=== PATIENT | female | born 1960 | race Two or more races ===

== ENCOUNTER 2025-01-04 19:35 | Inpatient (IN) | payer OTHER, MEDICAID ==
[~2025-01-04] VITALS: Ht 170.2 cm; Wt 120.5 kg
[~2025-01-04 19:35] MED LIST: ATOR40TA52 PO; CLOP75TA70 PO; FAMO-12 PO; FURO40TA4 PO; GABA-339 PO; LISI20TA56 PO; MELO15TA29 PO; MET25T PO; NIAC1TAB30 PO; PANT40T PO
--- NOTE | 2025-01-04 20:00 | ED.PDOC ---
HPI Comments 64-year-old female who came to ER for chest pains. Patient does have history of hypertension, CHF, and PA. states she has been having intermittent episodes of sharp, stabbing sternal chest pains, radiating across her chest since this morning, relieved temporarily with intake of nitro. States she took nitro at total of 4 times today. Persistence of chest pains with worsening left leg pain/swelling prompted patient to come to the ER Chief Complaint: Chest Pain Time Seen by MD: 19:59 Reviewed Notes: Nurses Notes Allergies: Coded Allergies: Codeine (Verified Allergy, Unknown, 01/04/25) Penicillins (Verified Allergy, Unknown, 01/04/25) Tetanus Antitoxin (Verified Allergy, Unknown, 01/04/25) Tetracycline (Verified Allergy, Unknown, 01/04/25) Information Source: Patient Mode of Arrival: Ambulatory Severity: Moderate Timing: Hours Duration: Intermittent Location: Chest (R), Chest (L) Quality: Sharp, Stabbing Onset: With Light Exertion Cardiac Risk Factors: HTN, Other (Mi) History of: Similar pain in past, PA Past Medical History PAST MEDICAL HISTORY: CHF, HTN, PA Surgical History: Denies all surgeries CUTTER HOT KNIFE History: Denies all CUTTER HOT KNIFE Hx Family History Family History: Reviewed,noncontributory to illness Social History Smoker: Non-Smoker Alcohol: Denies ETOH Use Drugs: Denies Drug Use Lives In: Home Constitutional: denies: chills, diaphoresis, fatigue, fever, malaise, sweats, weakness, others EENTM: denies: blurred vision, double vision, ear bleeding, ear discharge, ear drainage, ear pain, ear ringing, eye pain, eye redness, hearing loss, mouth pain, mouth swelling, nasal discharge, nose bleeding, nose congestion, nose pain, photophobia, tearing, throat pain, throat swelling, voice changes, others Respiratory: denies: cough, hemoptysis, orthopnea, SOB at rest, shortness of breath, SOB with excertion, stridor, wheezing, others Cardiovascular: reports: chest pain, edema; denies: dizzy spells, diaphoresis, Dyspnea on exertion, irregular heart beat, left arm pain, lightheadedness, palpitations, PND, syncope, others Gastrointestinal: denies: abdomen distended, abdominal pain, blood streaked bowels, constipated, diarrhea, dysphagia, difficulty swallowing, hematemesis, melena, nausea, poor appetite, poor fluid intake, rectal bleeding, rectal pain, vomiting, others Genitourinary: denies: abnormal vagina bleeding, burning, dyspareunia, dysuria, flank pain, frequency, hematuria, incontinence, pain, , vagina discharge, urgency, others Neurological: denies: dizziness, fainting, headache, left sided numbness, left sided weakness, numbness, paresthesia, pre-existing deficit, right sided numbness, right sided weakness, seizure, speech problems, tingling, tremors, weakness, others Musculoskeletal: denies: back pain, gout, joint pain, joint swelling, muscle p ain, muscle stiffness, neck pain, others Integumetry: denies: bruises, change in color, change in hair/nails, dryness, laceration, lesions, lumps, rash, wounds, others Allergic/Immunocompromised: denies: Difficulty Healing, Frequent Infections, Hives, Itching, others Hematologic/Lymphatic: denies: anemia, blood clots, easy bleeding, easy bruising, swollen glands, others Endocrine: denies: excessive hunger, excessive sweating, excessive thirst, excessive urination, flushing, intolerance to cold, intolerance to heat, unexplained weight gain, unexplained weight loss, others Psychiatric: denies: anxiety, bipolar disorder, depression, hopeless, panic disorder, schizophrenia, sleepless, suicidal, others Physical Exam General Appearance: No Apparent Distress, Normal HEENT: Normal ENT Inspection, Pharynx Normal, TMs Normal Neck: Full Range of Motion, Non-Tender, Normal, Normal Inspection Respiratory: Chest Non-Tender, Lungs Clear, No Accessory Muscle Use, No Respiratory Distress, Normal Breath Sounds Cardiovascular: No Edema, No JVD, No Murmur, No Gallop, Normal Peripheral Pulses, Regular Rate/Rhythm Breast Exam: Deferred Gastrointestinal: No Organomegaly, Non Tender, No Pulsatile Mass, Normal Bowel Sounds, Soft Genitalia: Deferred Pelvic: Deferred Rectal: Deferred Extremities: No calf tenderness, Normal capillary refill, Normal inspection, Normal range of motion, Non-tender, No pedal edema Musculoskeletal : Apperance: Normal Neurologic: Alert, [employer] professor II-XII nml as Tested, No Motor Deficits, Normal Affect, Normal Mood, No Sensory Deficits Cerebellar Function: Normal Reflexes: Normal Skin: Dry, Normal Color, Warm Lymphatic: No Adenopathy EKG EKG : Pulse Rate (adult): 90 Cardiac Rhythm: NSR Hypertrophy: RVH Was a procedure done? Was a procedure done?: No CP Differential Dx Differential Diagnosis: Angina, Anxiety / Panic Attack Differential Diagnosis: CHF Differential Diagnosis: Angina, Chest Wall Pain, Costochondritis, Esophageal reflux/spasm, Gastritis, Myocardial Infarction, Pneumonia X-Ray, Labs, Meds, VS Vital Signs Date Time Temp Pulse Resp B/P (MAP) Pulse Ox O2 Delivery O2 Flow Rate FiO2 01/04/25 20:37 84 17 125/81 01/04/25 20:00 90 01/04/25 19:38 90 01/04/25 19:37 98.2 87 20 111/62 94 98.2 Lab Test 01/04/25 21:40 01/04/25 20:45 Range/Units Troponin I High Sensitivity 94 *H 54 *H </=34 ng/L White Blood Count 10.0 4.4-10.8 10^3/uL Red Blood Count 4.74 4.0-5.20 10^6/uL Hemoglobin 14.0 12.2-16.2 g/dL Hematocrit 41.2 36.0-46.0 % Mean Corpuscular Volume 86.8 80.0-100.0 fL Mean Corpuscular Hemoglobin 29.5 28.0-32.0 pg Mean Corpuscular Hemoglobin Concent 34.0 32.0-36.0 g/dL Red Cell Distribution Width 15.1 H 11.8-14.3 % Platelet Count 200 140-450 10^3/uL Mean Platelet Volume 8.6 6.9-10.8 fL Neutrophils (%) (Auto) 73.1 37.0-80.0 % Lymphocytes (%) (Auto) 16.5 10.0-50.0 % Monocytes (%) (Auto) 7.9 0.0-12.0 % Eosinophils (%) (Auto) 1.5 0.0-7.0 % Basophils (%) (Auto) 1.0 0.0-2.0 % Neutrophils # (Auto) 7.3 1.6-8.6 10 ^3/uL Lymphocytes # (Auto) 1.6 0.4-5.4 10 ^3/uL Monocytes # (Auto) 0.8 0-1.3 10 ^3/uL Eosinophils # (Auto) 0.1 0-0.8 10 ^3/uL Basophils # (Auto) 0.1 0-0.2 10 ^3/uL Nucleated Red Blood Cells 0.1 % Prothrombin Time 10.7 9.3-11.8 sec Prothrombin Time INR 1.01 0.9-1.15 Activated Partial Thromboplast Time 25.7 24.5-34.5 SEC Sodium Level 139 136-145 mmol/L Potassium Level 3.6 3.5-5.1 mmol/L Chloride Level 105 98-107 mmol/L Carbon Dioxide Level 22 20-31 mmol/L Anion Gap 12 5-15 Blood Urea Nitrogen 14 9-23 mg/dL Creatinine 1.28 H 0.550-1.02 mg/dL Glomerular Filtration Rate Calc 47 >90 mL/min BUN/Creatinine Ratio 10.9 10.0-20.0 Serum Glucose 148 H 74-106 mg/dL Calcium Level 9.0 8.7-10.4 mg/dL Magnesium Level 2.1 1.6-2.6 mg/dL Total Bilirubin 0.8 0.2-1.0 mg/dL Aspartate Amino Transferase (AST) 37 13-40 U/L Alanine Aminotransferase (ALT) 38 7-40 U/L Alkaline Phosphatase 116 46-116 U/L B-Type Natriuretic Peptide 421.57 0-100 pg/mL Total Protein 7.3 5.7-8.2 g/dL Albumin 4.0 3.2-4.8 g/dL Current Medications Medications (Trade) Dose Ordered Sig/Todd Route Start Time Stop Time Status Last Admin Morphine Sulfate 4 mg ONCE ONCE IV 01/04/25 20:00 01/04/25 20:01 DC 01/04/25 20:37 Ondansetron HCl (Zofran) 4 mg ONCE ONCE IV 01/04/25 20:00 01/04/25 20:01 DC 01/04/25 20:38 Aspirin 162 mg ONCE ONCE PO 01/04/25 20:00 01/04/25 20:01 DC 01/04/25 20:38 Left lower extremity venous duplex Clinical History: pain left leg / swelling Comparison: None Technique: Duplex Doppler evaluation of the deep venous system of the left lower extremity from the common femoral vein to the popliteal vein including color Doppler and spectral/pulsed waveform analysis was performed. Findings: The common femoral vein demonstrates appropriate compressibility and waveform variability. There is compressibility/patency of the great saphenous vein at the proximal thigh. The femoral vein demonstrates appropriate compressibility and waveform variabi lity. The deep femoral vein demonstrates appropriate compressibility and waveform variability. The popliteal vein demonstrates appropriate compressibility and waveform variability. Impression: No evidence of left femoropopliteal venous thrombosis. T RADIOGRAPH REASON FOR EXAM: chest pain COMPARISON: None TECHNIQUE: One view of the chest is provided FINDINGS: The cardiomediastinal silhouette is enlarged. There is pulmonary venous congestion. There is mild pulmonary edema. There is small left pleural effusion. There is left basilar airspace disease. There is no pneumothorax. No acute osseous abnormality. IMPRESSION: Cardiomegaly. Mild pulmonary edema. Small left pleural effusion. Left basilar airspace disease, possibly atelectasis. Time of 1ST Reevaluation: 19:50 Reevaluation 1ST: Unchanged Patient Education/Counseling: Diagnosis, Treatment Family Education/Counseling: No Family Present SEPSIS Sepsis Screen Date sepsis recognized/suspect: Jan 04, 2025 Time Sepsis recognized/suspect: 1941 Recent Procedure: No On Antibiotic Therapy: No Respiratory Rate >20: No Heart Rate >90: No Temp<36 C (96.8 F) or >38.3 C: No SBP <90 or MAP <65 mmHG: No New Acute Mental Status Change: No Is the patient on CPAP, BIPAP,: No Physician Orders Electrocardigram (01/04/25 19:47) Chest Xray 1 View (01/04/25 19:47) Lt Lower Dvt (01/04/25 19:47) Troponin-I Hs (01/04/25 22:47) Vital Signs Date Time Temp Pulse Resp B/P (MAP) Pulse Ox O2 Delivery O2 Flow Rate FiO2 01/04/25 20:37 84 17 125/81 01/04/25 20:00 90 01/04/25 19:38 90 01/04/25 19:37 98.2 87 20 111/62 94 98.2 Laboratory Tests Test 01/04/25 20:45 White Blood Count 10.0 10^3/uL (4.4-10.8) Medications Medications Dose Ordered Sig/Todd Route Start Time Stop Time Status Last Admin Dose Admin Aspirin 162 mg ONCE ONCE PO 01/04/25 20:00 01/04/25 20:01 DC 01/04/25 20:38 Morphine Sulfate 4 mg ONCE ONCE IV 01/04/25 20:00 01/04/25 20:01 DC 01/04/25 20:37 Ondansetron HCl 4 mg ONCE ONCE IV 01/04/25 20:00 01/04/25 20:01 DC 01/04/25 20:38 Departure 1 Departure Time of Disposition: 22:30 Impression: Primary Impression: Acute coronary syndrome Additional Impression: Acute renal injury Disposition: ADMITTED INPATIENT Admit to: Tele Condition: Guarded Discharged With: Self Comments 64-year-old female with a history of coronary artery disease now complains of dull substernal chest pain. On her lab review her initial troponin is elevated at 54. The repeat troponin is more elevated 94. She appears to have acute renal injury with elevated creatinine of 1.28. Chest x-ray shows some mild pleural effusions. The patient was given aspirin and some IV fluids. Patient will need to be admitted for supportive care and further workup of acute coronary syndrome and acute renal injury Critical Care Note Critical Care Time?: Yes (35 min-critical care time only) Critical care comment: Chest pains Stability Stability form required: No Heart Score Heart Score: Heart Score Response (Comments) Value History Moderate Suspicious 1 EKG Repolarization Disturb 1 Age 45-64 1 Risk Factors >3 or Hx ASHD 2 Troponin Normal limit 0 Total 5 I personally scribed for EDITH EDDY MD ([email or web address]) on 01/04/25 at 20:00. Electronically submitted by Celio Valentine ([email or web address]). I personally scribed for EDITH EDDY MD ([email or web address]) on 01/04/25 at 21:10. Electronically submitted by Celio Valentine ([email or web address]). EDITH EDDY MD Jan 04, 2025 20:00
--- NOTE | 2025-01-04 20:24 | DVH ---
CHEST RADIOGRAPH REASON FOR EXAM: chest pain COMPARISON: None TECHNIQUE: One view of the chest is provided FINDINGS: The cardiomediastinal silhouette is enlarged. There is pulmonary venous congestion. There i s mild pulmonary edema. There is small left pleural effusion. There is left basilar airspace disease. There is no pneumothorax. No acute osseous abnormality. IMPRESSION: Cardiomegaly. Mild pulmonary edema. Small left pleural effusion. Left basilar airspace disease, poss ibly atelectasis.
--- NOTE | 2025-01-04 20:27 | DVH ---
Left lower extremity venous duplex Clinical History: pain left leg / swelling Comparison: None Technique: Duplex Doppler evaluation of the deep venous system of the left lower extremity from the common femor al vein to the popliteal vein including color Doppler and spectral/pulsed waveform analysis was perfo rmed. Findings: The common femoral vein demonstrates appropriate compressibility and waveform variability. There is compressibility/patency of the great saphenous vein at the proximal thigh. The femoral vein demonstrates appropriate compressibility and waveform variability. The deep femoral vein demonstrates appropriate compressibility and waveform variability. The popliteal vein demonstrates appropriate compressibility and waveform variability. Impression: No evidence of left femoropopliteal venous thrombosis.
[2025-01-04] MEDS: MORPHINE SULFATE 4 MG/ML SYR/VIAL IV ONE (20:37)
[2025-01-04] MEDS: ONDANSETRON HCL 4 MG/2 ML VIAL IV ONE (20:38)
[2025-01-04 21:11] LABS: Hematocrit 41.2 % (36.0-46.0); Hemoglobin 14.0 g/dL (12.2-16.2); Mean Corpuscular Hemoglobin 29.5 pg (28.0-32.0); Mean Corpuscular Volume 86.8 fL (80.0-100.0); Nucleated Red Blood Cells % 0.1 %
[2025-01-04 21:16] LABS: Alanine Aminotransferase 38 U/L (7-40); Albumin 4.0 g/dL (3.2-4.8); Anion Gap 12 (5-15); BUN/Creatinine Ratio 10.9 (10.0-20.0); Bilirubin, Total 0.8 mg/dL (0.2-1.0); Blood Urea Nitrogen 14 mg/dL (9-23); Calcium 9.0 mg/dL (8.7-10.4); Carbon Dioxide 22 mmol/L (20-31); Chloride 105 mmol/L (98-107); Magnesium 2.1 mg/dL (1.6-2.6); Potassium 3.6 mmol/L (3.5-5.1); Sodium 139 mmol/L (136-145); Total Protein 7.3 g/dL (5.7-8.2)
[2025-01-04 21:27] LABS: Alkaline Phosphatase 116 U/L (46-116); Glucose 148 mg/dL (74-106); INR 1.01 (0.9-1.15); Partial Thromboplastin Time 25.7 SEC (24.5-34.5); Prothrombin Time 10.7 sec (9.3-11.8)
[2025-01-04] MEDS: SODIUM CHLORIDE 0.9% 500 ML IV ONE (22:40)
[2025-01-04] MEDS ORDERED: METOCLOPRAMIDE HCL 5MG/ml INJ 2ml VIAL IV PRN (23:15)
[2025-01-04] MEDS ORDERED: NITROGLYCERIN 0.4 MG SL TAB SL PRN (23:15)
[2025-01-04] MEDS ORDERED: MORPHINE SULFATE INJ 2 MG/ml SYRG IV PRN (23:15)
[2025-01-04] MEDS ORDERED: ACETAMINOPHEN 325 MG TAB PO PRN (23:15)
[2025-01-04] MEDS ORDERED: DOCUSATE SOD 100 MG CAP PO PRN (23:15)
--- NOTE | 2025-01-04 23:21 | DVHHPRES ---
History of Present Illness Resident Creating Document: LEONCIO MOLINA History of Present Illness Jewels Farrell is a 64-year-old female patient who presents to the ED with chief complaint of multiple episodes of stabbing retrosternal chest pain which radiates towards left arm in Functional Class IV, intensity 8/10. First episode started on 01/04 2025 at 8:00 a.m. which was completely relieved by nitroglycerin after 30 minutes, next episode was at 1:00 p.m. which was relieved by nitro once again, however 3rd episode of 6:00 p.m. required two nitroglycerin pills was not relieved, prompting her visit to the ER. Patient says she has been having this intermittent pain since she was last hospitalized in May 2024, but was less intense and shorter episodes in variable functional class. Patient says this pain is different from when she had an HI in 2014. Associated symptoms include dyspnea in Functional Class III, bilateral leg swelling (left greater than right) and paroxysmal nocturnal dyspnea. She also reports recent mechanical fall with no loss of consciousness with left knee pain. Patient denies any other associated symptoms. Past medical history: Hypertension, dyslipidemia, morbid obesity, coronary artery disease with HI in 2013 which is not passable of revascularization with PCI and she refused CABG treated with optimal medical therapy, HFpEF (LVEF 55%), moderate circumferential pericardial effusion, provoked DVT in 2018 after mecha nical fall requiring thrombectomy and anticoagulation with warfarin for six months, asthma, probable COPD, peptic ulcer, cholelithiasis treated with pantoprazole per patient, questionable obstructive sleep apnea. Surgical history: Coronary angiography in 2013 and 2019 not passable of PCI, left knee surgery, thrombectomy. Family history: Mother and father had heart disease Social history: Lives in [facility] with family (next of kin ). Ex tobacco abuse (he is five pack-year history of smoking) quit approximately 10 years ago. Denies current tobacco, alcohol and other drug abuse. Allergies: Codeine, tetracycline, penicillin, tetanus Home medication: Aspirin, Plavix, atorvastatin, pantoprazole 05/2024 last echocardiogram: Moderate circumferential pericardial effusion, normal LV size and function (EF 55-60%), normal RV size and function, studies nondiagnostic to assess valvular disease. Patient seen and examined at bedside. Currently has no chest pain, she is on nasal cannula at 2 L/min (she normally does not require oxygen at home). Past Medical History Per HPI Past Surgical History Per HPI Family History Per HPI Past Social History Per HPI Review of Systems Review of Systems Per HPI Allergies: Coded Allergies: Codeine (Verified Allergy, Unknown, 01/04/25) Penicillins (Verified Allergy, Unknown, 01/04/25) Tetanus Antitoxin (Verified Allergy, Unknown, 01/04/25) Tetracycline (Verified Allergy, Unknown, 01/04/25) Exam Vital Signs Vital Signs Date Time Temp Pulse Resp B/P (MAP) Pulse Ox O2 Delivery O2 Flow Rate FiO2 01/04/25 20:37 84 17 125/81 01/04/25 19:37 98.2 94 98.2 Exam Patient lying in bed, in no acute distress General: Lucid, afebrile, mucosae are moist Cardiovascular: Decreased S1 and S2. No murmurs, gallops or rubs Respiratory: Regular ventilation mechanics. Bibasilar rales, rest of lung auscultation is clear. Requires cannula 2 L/min. Abdomen: Soft, nontender, no organomegaly, normal bowel sounds MSK/skin: Mobilizes 4 limbs. Skin is dry and warm. Bilateral infrapatellar pitting edema left greater than right. Neurological: Oriented in 3 spheres. No motor no sensitive deficits. Pupils are isocoric and reactive Labs/Xrays Labs Test 01/04/25 21:40 01/04/25 20:45 Range/Units Troponin I High Sensitivity 94 *H </=34 ng/L White Blood Count 10.0 4.4-10.8 10^3/uL Red Blood Count 4.74 4.0-5.20 10^6/uL Hemoglobin 14.0 12.2-16.2 g/dL Hematocrit 41.2 36.0-46.0 % Mean Corpuscular Volume 86.8 80.0-100.0 fL Mean Corpuscular Hemoglobin 29.5 28.0-32.0 pg Mean Corpuscular Hemoglobin Concent 34.0 32.0-36.0 g/dL Red Cell Distribution Width 15.1 H 11.8-14.3 % Platelet Count 200 140-450 10^3/uL Mean Platelet Volume 8.6 6.9-10.8 fL Neutrophils (%) (Auto) 73.1 37.0-80.0 % Lymphocytes (%) (Auto) 16.5 10.0-50.0 % Monocytes (%) (Auto) 7.9 0.0-12.0 % Eosinophils (%) (Auto) 1.5 0.0-7.0 % Basophils (%) (Auto) 1.0 0.0-2.0 % Neutrophils # (Auto) 7.3 1.6-8.6 10 ^3/uL Lymphocytes # (Auto) 1.6 0.4-5.4 10 ^3/uL Monocytes # (Auto) 0.8 0-1.3 10 ^3/uL Eosinophils # (Auto) 0.1 0-0.8 10 ^3/uL Basophils # (Auto) 0.1 0-0.2 10 ^3/uL Nucleated Red Blood Cells 0.1 % Prothrombin Time 10.7 9.3-11.8 sec Prothrombin Time INR 1.01 0.9-1.15 Activated Partial Thromboplast Time 25.7 24.5-34.5 SEC Sodium Level 139 136-145 mmol/L Potassium Level 3.6 3.5-5.1 mmol/L Chloride Level 105 98-107 mmol/L Carbon Dioxide Level 22 20-31 mmol/L Anion Gap 12 5-15 Blood Urea Nitrogen 14 9-23 mg/dL Creatinine 1.28 H 0.550-1.02 mg/dL Glomerular Filtration Rate Calc 47 >90 mL/min BUN/Creatinine Ratio 10.9 10.0-20.0 Serum Glucose 148 H 74-106 mg/dL Calcium Level 9.0 8.7-10.4 mg/dL Magnesium Level 2.1 1.6-2.6 mg/dL Total Bilirubin 0.8 0.2-1.0 mg/dL Aspartate Amino Transferase (AST) 37 13-40 U/L Alanine Aminotransferase (ALT) 38 7-40 U/L Alkaline Phosphatase 116 46-116 U/L B-Type Natriuretic Peptide 421.57 0-100 pg/mL Total Protein 7.3 5.7-8.2 g/dL Albumin 4.0 3.2-4.8 g/dL SEPSIS Sepsis Screen Date sepsis recognized/suspect: Jan 04, 2025 Time Sepsis recognized/suspect: 1941 Recent Procedure: No On Antibiotic Therapy: No Respiratory Rate >20: No Heart Rate >90: No Temp<36 C (96.8 F) or >38.3 C: No SBP <90 or MAP <65 mmHG: No New Acute Mental Status Change: No Is the patient on CPAP, BIPAP,: No Physician Orders Electrocardigram (01/04/25 19:47) Chest Xray 1 View (01/04/25 19:47) Lt Lower Dvt (01/04/25 19:47) Troponin-I Hs (01/04/25 22:47) Sodium Chloride 0.9% (01/04/25 22:30) Admit (01/04/25 23:12) Code Status (01/04/25 23:12) Vital Signs .PER UNIT PROTOCOL (01/04/25 23:12) Review Orders With Adm.Md (01/04/25 23:12) Npo (Nothing By Mouth) Diet (01/05/25 Breakfast) Metoclopramide Injection (Reglan Injecti (01/04/25 23:15) Docusate Sodium Capsule (Colace Capsule) (01/04/25 23:15) Acetaminophen Tablet (Tylenol Tablet) (01/04/25 23:15) Notify Md Of Changes From Base (01/04/25 23:12) Advance Directive (01/04/25 23:12) Echo 2d Mode Cardiac Dop (01/04/25 23:12) Patient Condition (01/04/25 23:12) Allergies (01/04/25 23:12) Morphine Sulfate Injection (01/04/25 23:15) Nitroglycerin Sublingual (Ntrostat Subli (01/04/25 23:15) Morphine Sulfate Injection (01/04/25 23:15) Oxygen By Nasal Cannula (01/04/25 23:12) Stat Ekg For Chest Pain (01/04/25 23:12) Notify Md Of Changes From Base (01/04/25 23:12) Plating Equipment Tender For 24 Hours (01/04/25 23:12) Emergency Dysrhythmia Protocol (01/04/25 23:12) Rhythm Strips Once Every Shift (01/04/25 23:12) Complete Blood Count (01/05/25 04:00) Basic Metabolic Panel (01/05/25 04:00) Vitamin D, 25-Hydroxy (01/04/25 23:12) Vitamin B12 (01/04/25 23:12) Thyroid Stimulating Hormone (01/04/25 23:12) Lipid Panel (01/04/25 23:12) Drug Screen (01/04/25 23:12) Hemoglobin A1c (01/04/25 23:12) Urinalysis (01/04/25 23:12) Aspirin Tablet (01/05/25 10:00) Atorvastatin (Lipitor) (01/05/25 22:00) Atorvastatin (Lipitor) (01/04/25 23:15) Furosemide Injection (Lasix Injection) (01/05/25 06:00) Enoxaparin Sodium (Lovenox) (01/05/25 10:00) Vital Signs Date Time Temp Pulse Resp B/P (MAP) Pulse Ox O2 Delivery O2 Flow Rate FiO2 01/04/25 20:37 84 17 125/81 01/04/25 20:00 90 01/04/25 19:38 90 01/04/25 19:37 98.2 87 20 111/62 94 98.2 Laboratory Tests Test 01/04/25 20:45 White Blood Count 10.0 10^3/uL (4.4-10.8) Medications Medications Dose Ordered Sig/Todd Route Start Time Stop Time Status Last Admin Dose Admin Aspirin 162 mg ONCE ONCE PO 01/04/25 20:00 01/04/25 20:01 DC 01/04/25 20:38 162 MG Aspirin 162 mg ONCE ONCE PO 01/04/25 22:30 01/04/25 22:31 DC 01/04/25 22:40 162 MG Morphine Sulfate 4 mg ONCE ONCE IV 01/04/25 20:00 01/04/25 20:01 DC 01/04/25 20:37 4 MG Ondansetron HCl 4 mg ONCE ONCE IV 01/04/25 20:00 01/04/25 20:01 DC 01/04/25 20:38 4 MG Sodium Chloride 500 ml @ 500 mls/hr Q1H ONCE IV 01/04/25 22:30 01/04/25 23:29 01/04/25 22:40 500 MLS/HR Assessment/Plan Assessment/Plan # NSTEMI rule out type 1 # Acute respiratory failure secondary to HFpEF # Acute on chronic diastolic congestive heart failure (HFpEF LVEF 55-60%) # Coronary artery disease with history of HI not revascularized # Ischemic cardiomyopathy - not revascularized # Rule out progression of pericardial effusion # History of moderate pericardial effusion Completed EKG which shows no ST-elevation, negative T waves in anterior leads and old infero-lateral infarct, troponin mildly elevated up trending, BNP elevated (421). Chest xRay shows cardiomegaly and mild pulmonary edema. Cardiology consulted. Ordered new echocardiogram to evaluate LVEF, wall motion abnormalities and per icardial effusion Hold IV diuretics until completing new echocardiogram due to history of moderate pericardial effusion. Rule out progression empiric cardial effusion before diminishing preload. Currently with oxygen therapy with nasal cannula 2 L/min Patient completed coronary angiography in 2013 and 2019, not passable for PCI per patient. She refused CABG previously, opted for optimal medical therapy. Continue ASA, clopidogrel and atorvastatin Patient does not present Baker's triad. No need for urgent pericardiocentesis. Pending new echocardiogram 05/2024 last echocardiogram: Moderate circumferential pericardial effusion, normal LV size and function (EF 55-60%), normal RV size and function, studies nondiagnostic to assess valvular disease. # ALLI hemodynamically mediated (VMN) Hold diuretics until echocardiogram is completed # Mechanical fall # Ruled out DVT # History of provoked DVT after mechanical fall - required Warfarin for 6 months Patient had recent mechanical fall with no loss of consciousness and injured her left knee. Ordered left knee x-ray Completed lower limb ultrasound which ruled out DVT # Asthma and probable COPD not exacerbated Currently on oxygen therapy with nasal cannula at 2 L/min # Prediabetes - Hemoglobin A1C 6% # Hypertension # Dyslipidemia # Morbid obesity Gave advice on healthy life style habits Continue Atorvastatin No anti-hypertensive medication at the time required. Evaluate pericardial ef fusion On mild insulin sliding scale # History of peptic ulcers # History of cholelithiasis Continue pantoprazole. Monitor # Questionable HENRI Complete sleep study as an outpatient Goals of care discussed with patient for over 18 minutes: Full code status Discussed plan with Dr. Griggs, patient and nurses: Patient admitted to telemetry, currently asymptomatic for angina, with mildly elevated troponin that is uptrending, anterior negative T waves on EKG. Cardiology consulted to evaluate coronary angiography. Ordered echocardiogram to evaluate previous moderate pericardial effusion. Plan discussed with: Patient, Son, Other (Nurses) My Orders Orders - LEONCIO MOLINA RESIDENT Procedure Category Date Status Time Admit ADMIT 01/04/25 Transmitted 23:12 Code Status CODE 01/04/25 Transmitted 23:12 Vital Signs DC 01/04/25 In Process 23:12 Review Orders With [facility] 01/04/25 In Process Adm. 23:12 Npo (Nothing By DIET 01/05/25 Transmitted Mouth) Diet Breakfast Metoclopramide [facility] 01/04/25 Logged Injection (Reglan 23:15 Docusate Sodium PHA 01/04/25 Logged Capsule (Colace 23:15 Acetaminophen Tablet [facility] 01/04/25 Logged (Tylenol Tablet) 23:15 Notify Of Changes [facility] 01/04/25 In Process From Base 23:12 Advance Directive [facility] 01/04/25 In Process 23:12 Echo 2d Mode Cardiac US 01/04/25 Logged DOP 23:12 Patient Condition ORDERS 01/04/25 Transmitted 23:12 Allergies [facility] 01/04/25 In Process 23:12 Morphine Sulfate [facility] 01/04/25 Logged Injection 23:15 Nitroglycerin [facility] 01/04/25 Logged Sublingual (Ntrostat 23:15 Morphine Sulfate [facility] 01/04/25 Logged Injection 23:15 Oxygen By Nasal RT 01/04/25 Transmitted Cannula 23:12 Stat Ekg For Chest [facility] 01/04/25 In Process Pain 23:12 Notify Of Changes [facility] 01/04/25 In Process From Base 23:12 Plating Equipment Tender For [facility] 01/04/25 In Process 24 Hours 23:12 Emergency Dysrhythmia [facility] 01/04/25 In Process Protocol 23:12 Rhythm Strips Once [facility] 01/04/25 In Process Every Shift 23:12 Complete Blood Count LAB 01/05/25 Verified 04:00 Basic Metabolic Panel LAB 01/05/25 Verified 04:00 Vitamin D, 25-Hydroxy LAB 01/04/25 In Process 23:12 Vitamin B12 LAB 01/04/25 In Process 23:12 Thyroid Stimulating LAB 01/04/25 In Process Hormone 23:12 Lipid Panel LAB 01/04/25 In Process 23:12 Drug Screen LAB 01/04/25 Logged 23:12 Hemoglobin A1c LAB 01/04/25 In Process 23:12 Urinalysis LAB 01/04/25 Logged 23:12 Aspirin Tablet [facility] 01/05/25 Logged 10:00 Atorvastatin (Lipitor) [facility] 01/05/25 Logged 22:00 Atorvastatin (Lipitor) [facility] 01/04/25 Logged 23:15 Furosemide Injection [facility] 01/05/25 Logged (Lasix Injection) 06:00 Enoxaparin Sodium [facility] 01/05/25 Logged (Lovenox) 10:00 Date of Service: Jan 04, 2025 Billing Provider: CAITLYN GRIGGS MD Common Visit Codes: [id number] INP/OBS CARE (HIGH) Secondary Visit Codes: [id number] CARE PLAN 30 MINUTES LEONCIO MOLINA RESIDENT Jan 04, 2025 23:21
[2025-01-04] MEDS: ENOXAPARIN SOD 100 MG/1 ML SYRINGE SC SCH (23:25)
[2025-01-04 23:36] LABS: Triglycerides 145 mg/dL (< 150)
[2025-01-05 00:05] LABS: Cholesterol 234 mg/dL (< 200); HDL Cholesterol 34 mg/dL (40-59)
[2025-01-05] MEDS: ATORVASTATIN 20 MG TAB PO ONE (00:55)
[2025-01-05 05:41] LABS: Hematocrit 40.9 % (36.0-46.0); Hemoglobin 14.1 g/dL (12.2-16.2); Mean Corpuscular Hemoglobin 30.0 pg (28.0-32.0); Mean Corpuscular Volume 87.2 fL (80.0-100.0); Nucleated Red Blood Cells % 0.0 %
[2025-01-05 05:53] LABS: Chloride 104 mmol/L (98-107); Potassium 3.7 mmol/L (3.5-5.1); Sodium 140 mmol/L (136-145)
[2025-01-05 05:54] LABS: Anion Gap 10 (5-15); Calcium 9.2 mg/dL (8.7-10.4); Carbon Dioxide 26 mmol/L (20-31)
[2025-01-05 05:59] LABS: BUN/Creatinine Ratio 9.8 (10.0-20.0); Blood Urea Nitrogen 12 mg/dL (9-23); Glucose 105 mg/dL (74-106)
[2025-01-05] MEDS ORDERED: FUROSEMIDE 20 MG/2 ML VIAL IV SCH (06:00)
[2025-01-05] MEDS ORDERED: DEXTROSE (50%) 50ML SYRG IV PRN (06:15)
[2025-01-05 07:35] LABS: COVID19 ANTIGEN SOFIA FIA NEGATIVE (NEGATIVE)
--- NOTE | 2025-01-05 07:56 | DVH ---
XY L KNEE 3V XRAY, INDICATION: Mechanical fall TECHNICAL DATA: Frontal , oblique and lateral views were obtained of the left knee. COMPARISON: None FINDINGS: No fracture is identified. Medial, lateral and patellofemoral compartment joint spaces are degenerati ve. Alignment is anatomic. Soft tissues are swollen. No joint effusion is demonstrated. IMPRESSION: No acute fracture or dislocation of the left knee.
[2025-01-05] MEDS: MORPHINE SULFATE INJ 2 MG/ml SYRG IV PRN (08:04)
[2025-01-05] MEDS: PANTOPRAZOLE 40 MG TAB PO SCH (08:04)
[2025-01-05] MEDS: InsuLIN REG 1unit/0.01ml Soln (100units/ml) SC SCH (08:05)
[2025-01-05] MEDS: ACCU-CHEK COMFORT CURVE STRIP VI SCH (08:13)
[2025-01-05] MEDS: CLOPIDOGREL BISULFATE 75 MG TAB PO SCH (10:09)
--- NOTE | 2025-01-05 12:21 | DVHINCON2 ---
Date Seen: Jan 05, 2025 Referring Physician [place] Reason for Consultation NSTEMI History of Present Illness 64-year-old female with PMH for HTN, CAD, previous smoker, left lower extremity DVT, CHF presents to the hospital with intermittent retrosternal sharp pain radiating up to left neck and down her left arm. Patient states started roughly yesterday and been having intermittent episodes ever since. Patient states she has relief with nitro. Upon evaluation in the ER patient did not have troponins trending 54, 94, 153. BNP 421. CXR showing cardiomegaly with mild pulmonary edema small left pleural effusion. Left lower extremity ultrasound negative for DVT. Patient does endorse that she has had angiograms in the past in 2013 and 2019 of which was told was not suitable candidate for PCI and was recommended at both times CABG. Patient states that she has had friends that have passed right after undergoing surgery and therefore did not want to proceed with any surgery. EKG reviewed and shows sinus rhythm at 90 beats per minute, inferolateral ST and T-wave abnormality, anterior T-wave inversion. Past Medical History Hypertension, dyslipidemia, morbid obesity, coronary artery disease with IN in DVT in 2018 asthma, probable COPD, peptic ulcer, cholelithiasis treated with pantoprazole per patient, questionable obstructive sleep apnea. Past Surgical History Surgical history: Coronary angiography in 2013 and 2019 not passable of PCI, refused CABG at that time. left knee surgery, DVT thrombectomy. Family History Denies pertinent family cardiac history Social History Denies alcohol or illicit drug use. Patient will was a previous smoker endorses quitting approximately 10 years prior. Allergies: Coded Allergies: Codeine (Verified Allergy, Unknown, 01/04/25) Penicillins (Verified Allergy, Unknown, 01/04/25) Tetanus Antitoxin (Verified Allergy, Unknown, 01/04/25) Tetracycline (Verified Allergy, Unknown, 01/04/25) Current Medications Current Medications Medications (Trade) Dose Ordered Sig/Todd Route PRN Reason Start Time Stop Time Status Last Admin Metoclopramide HCl (Reglan Injection) 10 mg Q4HP PRN IV NAUSEA / VOMITING 01/04/25 23:15 Docusate Sodium (Colace Capsule) 100 mg BIDPRN PRN PO FOR CONSTIPATION 01/04/25 23:15 Acetaminophen (Tylenol Tablet) 650 mg Q6HP PRN PO PAIN SCALE 1-3 OR TEMP>100.4 01/04/25 23:15 Morphine Sulfate 2 mg Q4HPRN PRN IV SEVERE PAIN (7-10 PAIN SCALE) 01/04/25 23:15 01/05/25 08:04 Nitroglycerin (Ntrostat Sublingual) 0.4 mg Q5MINP PRN SL FOR CHEST PAIN 01/04/25 23:15 Morphine Sulfate 2 mg Q30M PRN IV FOR CHEST PAIN 01/04/25 23:15 Aspirin 81 mg DAILY PO 01/05/25 10:00 01/05/25 10:09 Atorvastatin Calcium (Lipitor) 80 mg HS PO 01/05/25 22:00 Furosemide (Lasix Injection) 20 mg BIDD IV 01/05/25 06:00 Hold Enoxaparin Sodium (Lovenox) 150 mg Q12HR@1100,2300 SC 01/04/25 23:25 01/05/25 10:08 Clopidogrel Bisulfate (Plavix) 75 mg DAILY PO 01/05/25 10:00 01/05/25 10:09 Pantoprazole Sodium (Protonix Tablet) 40 mg DAILY@0600 PO 01/05/25 06:00 01/05/25 08:04 Diagnostic Test (Pha) (Accu-Chek Comfort Curve T) 1 strip ACHS 01/05/25 07:00 01/05/25 11:28 Insulin Human Regular (InsuLIN R) ACHS SC 01/05/25 07:00 Dextrose 50 ml UD PRN IV Blood Sugar LESS THAN 60 01/05/25 06:15 Review of Systems Constitutional: No: Fever, Chills, Sweats, Weakness, Malaise, Other Eyes: No: Pain, Vision change, Conjunctivae inflammation, Eyelid inflammation, Other, Redness ENT: No: Ear pain, Ear discharge, Nose pain, Nose discharge, Nose congestion, Mouth pain, Mouth swelling, Throat pain, Throat swelling, Other Respiratory: No: Cough, Dry, Shortness of breath, SOB with exertion, Wheezing, Hemoptysis, Pleuritic Pain, Sputum, Wheezing, Other Cardiovascular: ; No: Chest Pain Palpitations, Orthopnea, Paroxysmal Noc. Dyspnea, Edema, Lt Headedness, Other Gastrointestinal: No: Nausea, Vomiting, Abdominal Pain, Diarrhea, Constipation, Melena, Hematochezia, Other Genitourinary: No Dysuria, No Frequency, No Incontinence, No Hematuria, No Retention, No Other Musculoskeletal: neck pain; No: other, shoulder pain, arm pain, back pain, hand pain, leg pain, foot pain Skin: No: Rash, Lesions, Jaundice, Bruising, Other Neurological: Other (Dizziness, headache.); No: Weakness, Numbness, Incoordination, Change in speech, Confusion, Seizures Vital Signs Vital Signs Date Time Temp Pulse Resp B/P (MAP) Pulse Ox O2 Delivery O2 Flow Rate FiO2 01/05/25 08:34 80 15 102/60 01/05/25 07:50 Nasal Cannula* 2 28 01/05/25 06:21 92 01/05/25 00:57 97.4 97.4 Physical Exam General appearance: Patient is well-developed, well-nourished, in no acute distress. HEENT: Exam shows: Normocephalic, atraumatic, PERRLA, EOMI Neck: Supple, no bruits Chest: Equal chest excursion bilaterally. Breath sounds normal-no rales or wheezes. Heart: Rhythm: Regular rate; no murmur or gallop Abdomen: Exam shows: Soft, nontender, nondistended Musculoskeletal: No clubbing, no cyanosis, + lower extremity edema Dermatology: Skin warm, moist. Neurological: Exam shows: Alert and oriented x4, normal speech Available prior records, labs, EKG, rhythm strips reviewed and interpreted Labs/Diagnostic Data Labs Test 01/05/25 11:27 01/05/25 05:50 01/05/25 04:50 01/04/25 23:42 Range/Units POC Glucose 111 H 70-106 mg/dl Influenza Type A Antigen Negative Negative Influenza Type B Antigen Negative Negative SARS-CoV-2 Antigen (Rapid) Negative NEGATIVE White Blood Count 9.8 4.4-10.8 10^3/uL Red Blood Count 4.70 4.0-5.20 10^6/uL Hemoglobin 14.1 12.2-16.2 g/dL Hematocrit 40.9 36.0-46.0 % Mean Corpuscular Volume 87.2 80.0-100.0 fL Mean Corpuscular Hemoglobin 30.0 28.0-32.0 pg Mean Corpuscular Hemoglobin Concent 34.4 32.0-36.0 g/dL Red Cell Distribution Width 15.3 H 11.8-14.3 % Platelet Count 207 140-450 10^3/uL Mean Platelet Volume 8.6 6.9-10.8 fL Neutrophils (%) (Auto) 58.9 37.0-80.0 % Lymphocytes (%) (Auto) 31.0 10.0-50.0 % Monocytes (%) (Auto) 7.3 0.0-12.0 % Eosinophils (%) (Auto) 1.9 0.0-7.0 % Basophils (%) (Auto) 0.9 0.0-2.0 % Neutrophils # (Auto) 5.8 1.6-8.6 10 ^3/uL Lymphocytes # (Auto) 3.0 0.4-5.4 10 ^3/uL Monocytes # (Auto) 0.7 0-1.3 10 ^3/uL Eosinophils # (Auto) 0.2 0-0.8 10 ^3/uL Basophils # (Auto) 0.1 0-0.2 10 ^3/uL Nucleated Red Blood Cells 0.0 % Erythrocyte Sedimentation Rate 14 0-20 mm/hr Sodium Level 140 136-145 mmol/L Potassium Level 3.7 3.5-5.1 mmol/L Chloride Level 104 98-107 mmol/L Carbon Dioxide Level 26 20-31 mmol/L Anion Gap 10 5-15 Blood Urea Nitrogen 12 9-23 mg/dL Creatinine 1.22 H 0.550-1.02 mg/dL Glomerular Filtration Rate Calc 50 >90 mL/min BUN/Creatinine Ratio 9.8 L 10.0-20.0 Serum Glucose 105 74-106 mg/dL Calcium Level 9.2 8.7-10.4 mg/dL C-Reactive Protein High Sensitivity 0.98 <1.0 mg/dL Troponin I High Sensitivity 153 *H </=34 ng/L Test 01/04/25 20:45 Range/Units Prothrombin Time 10.7 9.3-11.8 sec Prothrombin Time INR 1.01 0.9-1.15 Activated Partial Thromboplast Time 25.7 24.5-34.5 SEC Hemoglobin A1c 6.0 H <5.7 % A1C Magnesium Level 2.1 1.6-2.6 mg/dL Total Bilirubin 0.8 0.2-1.0 mg/dL Aspartate Amino Transferase (AST) 37 13-40 U/L Alanine Aminotransferase (ALT) 38 7-40 U/L Alkaline Phosphatase 116 46-116 U/L B-Type Natriuretic Peptide 421.57 0-100 pg/mL Total Protein 7.3 5.7-8.2 g/dL Albumin 4.0 3.2-4.8 g/dL Triglycerides Level 145 < 150 mg/dL Cholesterol Level 234 H < 200 mg/dL LDL Cholesterol 193 H < 100 mg/dL HDL Cholesterol 34 L 40-59 mg/dL Thyroid Stimulating Hormone (TSH) 1.18 0.55-4.78 uIU/mL Assessment * NSTEMI - continue aspirin and Plavix and statin. EKG with ST and T-wave abnormalities. Prior infarcts with though interventions. Follow up echo. * Acute on chronic HFpEF - diuresed held in setting of ALLI. Follow up echo. * HLD - statin * CAD - endorse previous angiogram with significant CAD not possible for PCI. Continue on medical management. * ALLI - continue monitoring. * HX lower lower extremity DVT - ultrasound negative for DVT. * Acute hypoxic respiratory failure, CHF, underlying COPD? - per primary team. Case Discussed with Dr Valdez. Continue medical management with aspirin and statin and Plavix. Patient with previously known CAD and possible for PCI referred for CABG though refused in the past. Plan of care discussed in detail with patient continues to not want any type of surgical intervention or procedure at this time. Patient verbalizes understanding of risks and benefits as well as leading to myocardial . Adamant about not wanting any procedure/surgery. Continue medical management. Check echo. Critical care, time spent: 40 minutes This medical document was created using an electronic medical record system with voice recognition software and computerized dictation system. Although this document has been carefully reviewed, there might still be some phonetic and typographical errors. Occasional wrong-word or ``sound-alike substitutions may have occurred due to the inherent limitations of voice recognition software. These areas are purely typographical due to imperfections of the software programs and do not reflect any compromise in the patient's medical care. Please read the chart carefully and recognize, using context, where these substitutions have occurred. Thank you for allowing me to participate in the management of this patient. The treatment plan was discussed with and agreed upon by patient/family including requesting consultants and ordering of imaging/procedures. Plan discussed with: Patient NYHA Physical activity limitations: Class3(Marked) ordinary Date of Service: Jan 05, 2025 Billing Provider: THOMAS JIMENEZ Cardiology Common Codes: [id number] INP/OBS CARE (High), [id number] HOSP CARE(High THOMAS JIMENEZ Jan 05, 2025 12:21
--- NOTE | 2025-01-05 12:33 | DVHPN2 ---
Reviewed: Care Plan, H&P, Labs, Medications, Previous Orders, Radiology Changes from previous H/P or p: No Changes Objective Vitals Vital Signs Date Time Temp Pulse Resp B/P (MAP) Pulse Ox O2 Delivery O2 Flow Rate FiO2 01/05/25 08:34 80 15 102/60 01/05/25 07:50 Nasal Cannula* 2 28 01/05/25 06:21 92 01/05/25 00:57 97.4 97.4 Medications Current Medications Medications Dose Ordered Sig/Todd Route Start Time Stop Time Status Last Admin Dose Admin Metoclopramide HCl 10 mg Q4HP PRN IV 01/04/25 23:15 Docusate Sodium 100 mg BIDPRN PRN PO 01/04/25 23:15 Acetaminophen 650 mg Q6HP PRN PO 01/04/25 23:15 Morphine Sulfate 2 mg Q4HPRN PRN IV 01/04/25 23:15 01/05/25 08:04 2 MG Nitroglycerin 0.4 mg Q5MINP PRN SL 01/04/25 23:15 Morphine Sulfate 2 mg Q30M PRN IV 01/04/25 23:15 Aspirin 81 mg DAILY PO 01/05/25 10:00 01/05/25 10:09 81 MG Atorvastatin Calcium 80 mg HS PO 01/05/25 22:00 Furosemide 20 mg BIDD IV 01/05/25 06:00 Hold Enoxaparin Sodium 150 mg Q12HR@1100,2300 TN 01/04/25 23:25 01/05/25 10:08 150 MG Clopidogrel Bisulfate 75 mg DAILY PO 01/05/25 10:00 01/05/25 10:09 75 MG Pantoprazole Sodium 40 mg DAILY@0600 PO 01/05/25 06:00 01/05/25 08:04 40 MG Diagnostic Test (Pha) 1 strip ACHS 01/05/25 07:00 01/05/25 11:28 1 STRIP Insulin Human Regular ACHS SC 01/05/25 07:00 Dextrose 50 ml UD PRN IV 01/05/25 06:15 Laboratory Results Laboratory Tests 01/05/25 04:50 Chemistry Test 01/04/25 20:45 01/05/25 04:50 Albumin 4.0 g/dL (3.2-4.8) Calcium Level 9.0 mg/dL (8.7-10.4) 9.2 mg/dL (8.7-10.4) Magnesium Level 2.1 mg/dL (1.6-2.6) Total Protein 7.3 g/dL (5.7-8.2) Coagulation Test 01/04/25 20:45 Prothrombin Time 10.7 sec (9.3-11.8) Prothrombin Time INR 1.01 (0.9-1.15) Activated Partial Thromboplast Time 25.7 SEC (24.5-34.5) Lipid panel Test 01/04/25 20:45 Cholesterol Level 234 mg/dL (< 200) H HDL Cholesterol 34 mg/dL (40-59) L Triglycerides Level 145 mg/dL (< 150) Cardiac Markers Test 01/04/25 20:45 B-Type Natriuretic Peptide 421.57 pg/mL (0-100) LFT Test 01/04/25 20:45 Alanine Aminotransferase (ALT) 38 U/L (7-40) Alkaline Phosphatase 116 U/L (46-116) Aspartate Amino Transferase (AST) 37 U/L (13-40) Total Bilirubin 0.8 mg/dL (0.2-1.0) HgA1c, TSH Test 01/04/25 20:45 Hemoglobin A1c 6.0 % A1C (<5.7) H Thyroid Stimulating Hormone (TSH) 1.18 uIU/mL (0.55-4.78) Labs and/or images reviewed: Labs reviewed by me, Image(s) reviewed by me Assessment/Plan Assessment/Plan NSTEMI - continue aspirin and Plavix and statin. EKG with ST and T-wave abnormalities. Follow up echo. Acute on chronic HFpEF - diuresed held in setting of ALLI. Follow up echo. Hypercholesterolemia- statin CAD - endorse previous angiogram with significant CAD not possible for PCI. Continue on medical management. ALLI - continue monitoring. HX lower lower extremity DVT - ultrasound negative for DVT. Acute hypoxic respiratory failure, CHF Acute COPD exacerbation Spent 70 minutes Advanced care planning time 20 minutes Patient is full code Plan discussed with: Patient Date of Service: Jan 05, 2025 Billing Provider: KAVIN ADLER MD Common Visit Codes: [id number] CARE 30-74 MIN KAVIN ADLER MD Jan 05, 2025 12:33
[2025-01-05 14:29] LABS: Urine Protein, UAD Negative (Negative)
[2025-01-05 14:44] LABS: Amphetamine Screen, Urine Neg (NEGATIVE); Barbiturate Scree,Urine Neg (NEGATIVE); Benzodiazephine Screen, Urine Neg (NEGATIVE); Cannabinoid Screen, Urine Neg (NEGATIVE); Cocaine Screen, Urine Neg (NEGATIVE); Opiate Scree,Urine Pos (NEGATIVE); Phencyclidine Screen, Urine Neg (NEGATIVE)
[2025-01-05] MEDS: ATORVASTATIN 20 MG TAB PO SCH (21:45)
[2025-01-05 23:00] VITALS: BP 135/86; PULSE 71; RESP 20; TEMP 97.9; O2SAT 96
[2025-01-05 23:20] VITALS: PULSE 82; RESP 18; O2SAT 98
[2025-01-05 23:30] VITALS: BP 135/86; PULSE 71; RESP 19; TEMP 98.1; O2SAT 96
[2025-01-06] VITALS (8 sets, daily range): BP systolic 91–128; BP diastolic 49–68; PULSE 58–118; RESP 15–22; TEMP 97.5–98.9; O2SAT 93–100
--- NOTE | 2025-01-06 10:45 | DVHPN2 ---
Reviewed: Care Plan, H&P, Labs, Medications, Previous Orders, Radiology Changes from previous H/P or p: No Changes Objective Vitals Vital Signs Date Time Temp Pulse Resp B/P (MAP) Pulse Ox O2 Delivery O2 Flow Rate FiO2 01/06/25 09:00 98.4 69 15 100/58 (72) 100 98.4 01/05/25 23:20 Nasal Cannula* 6 44 Intake/Output Intake and Output 01/06/25 07:00 Intake Total 0 ml Balance 0 ml Intake Oral 0 ml # Voids 3 Medications Current Medications Medications Dose Ordered Sig/Todd Route Start Time Stop Time Status Last Admin Dose Admin Metoclopramide HCl 10 mg Q4HP PRN IV 01/04/25 23:15 Docusate Sodium 100 mg BIDPRN PRN PO 01/04/25 23:15 Acetaminophen 650 mg Q6HP PRN PO 01/04/25 23:15 Morphine Sulfate 2 mg Q4HPRN PRN IV 01/04/25 23:15 01/05/25 08:04 2 MG Nitroglycerin 0.4 mg Q5MINP PRN SL 01/04/25 23:15 Morphine Sulfate 2 mg Q30M PRN IV 01/04/25 23:15 Aspirin 81 mg DAILY PO 01/05/25 10:00 01/05/25 10:09 81 MG Atorvastatin Calcium 80 mg HS PO 01/05/25 22:00 01/05/25 21:45 80 MG Furosemide 20 mg BIDD IV 01/05/25 06:00 Hold Enoxaparin Sodium 150 mg Q12HR@1100,2300 SC 01/04/25 23:25 01/05/25 22:33 150 MG Clopidogrel Bisulfate 75 mg DAILY PO 01/05/25 10:00 01/05/25 10:09 75 MG Pantoprazole Sodium 40 mg DAILY@0600 PO 01/05/25 06:00 01/05/25 08:04 40 MG Diagnostic Test (Pha) 1 strip ACHS 01/05/25 07:00 01/06/25 06:04 1 STRIP Insulin Human Regular ACHS SC 01/05/25 07:00 Dextrose 50 ml UD PRN IV 01/05/25 06:15 Laboratory Results Laboratory Tests 01/05/25 04:50 Urinalysis Test 01/05/25 10:34 Urine Color Yellow (Yellow) Urine Clarity Turbid (Clear) H Urine pH 5.5 (5.0-9.0) Urine Specific [place] 1.028 (1.001-1.035) Urine Protein Negative (Negative) Urine Ketones Negative (Negative) Urine Blood Negative /uL (Negative) Urine Nitrite Negative (Negative) Urine Bilirubin Negative (Negative) Urine Urobilinogen Normal mg/dL (Negative) Urine Leukocyte Esterase Negative /uL (Negative) Urine RBC 1 /hpf (0 - 4) Urine Microscopic WBC 2 /HPF (0-5) Urine Squamous Epithelial Cells Few /hpf (<5) Urine Bacteria Many /hpf (None Seen) H Urine Mucus Few (None Seen) Urine Glucose Normal mg/dL (Normal) Labs and/or images reviewed: Labs reviewed by me, Image(s) reviewed by me Assessment/Plan Assessment/Plan NSTEMI - continue aspirin and Plavix and statin. EKG with ST and T-wave abnormalities. Follow up echo. Acute on chronic HFpEF - diuresed held in setting of ALLI. Follow up echo. Hypercholesterolemia- statin CAD - endorse previous angiogram with significant CAD not possible for PCI. Continue on medical management. ALLI - continue monitoring. 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 Acute left lower leg pain: Arterial ultrasound rule out peripheral arterial disease ordered Acute hypoxic respiratory failure continue oxygen by nasal cannula Acute COPD exacerbation Spent 50 minutes Advanced care planning time 20 minutes Patient is full code Patient continues to refuse any surgical cardiac intervention Plan discussed with: Patient Date of Service: Jan 06, 2025 Billing Provider: KAVIN ADLER MD Common Visit Codes: [id number] INP/OBS CARE(HIGH) KAVIN ADLER MD Jan 06, 2025 10:45
--- NOTE | 2025-01-06 17:02 | DVHPN2 ---
Consult Progress Note Date Seen: Jan 07, 2025 Subjective Review of Systems: CVS:Normal, RESPIRATORY:Normal, NEURO:Normal Objective vital signs Vital Sign Date Time Temp Pulse Resp B/P (MAP) Pulse Ox O2 Delivery O2 Flow Rate FiO2 01/06/25 13:06 98.6 63 15 128/65 (86) 100 98.6 01/05/25 23:20 Nasal Cannula* 6 44 Total Intake and Output 01/05/25 01/05/25 01/06/25 15:00 23:00 07:00 Intake Total 0 ml Balance 0 ml medications Current Medications Medications Dose Ordered Sig/Todd Route Start Time Stop Time Status Last Admin Dose Admin Metoclopramide HCl 10 mg Q4HP PRN IV 01/04/25 23:15 Docusate Sodium 100 mg BIDPRN PRN PO 01/04/25 23:15 Acetaminophen 650 mg Q6HP PRN PO 01/04/25 23:15 Morphine Sulfate 2 mg Q4HPRN PRN IV 01/04/25 23:15 01/05/25 08:04 2 MG Nitroglycerin 0.4 mg Q5MINP PRN SL 01/04/25 23:15 Morphine Sulfate 2 mg Q30M PRN IV 01/04/25 23:15 Aspirin 81 mg DAILY PO 01/05/25 10:00 01/06/25 11:45 81 MG Atorvastatin Calcium 80 mg HS PO 01/05/25 22:00 01/05/25 21:45 80 MG Furosemide 20 mg BIDD IV 01/05/25 06:00 Hold Enoxaparin Sodium 150 mg Q12HR@1100,2300 SC 01/04/25 23:25 01/06/25 11:44 150 MG Clopidogrel Bisulfate 75 mg DAILY PO 01/05/25 10:00 01/06/25 11:45 75 MG Pantoprazole Sodium 40 mg DAILY@0600 PO 01/05/25 06:00 01/05/25 08:04 40 MG Diagnostic Test (Pha) 1 strip ACHS 01/05/25 07:00 01/06/25 11:45 1 STRIP Insulin Human Regular ACHS SC 01/05/25 07:00 Dextrose 50 ml UD PRN IV 01/05/25 06:15 Examination: LUNGS:Normal, CVS:Normal, NEURO:Normal laboratory and microbiology Laboratory Tests 01/05/25 04:50 Test 01/05/25 04:50 Range/Units Serum Glucose 105 74-106 mg/dL Problem List/Assessment/Plan Problem List/Assessment/Plan (Dr. Valdez) * NSTEMI - continue aspirin and Plavix and statin. EKG with ST and T-wave abnormalities. Prior infarcts with though interventions. TTE revealed LVEF at approximally 80% with concentric LVH, RV outflow enlargement, and RV enlargement. * Acute on chronic HFpEF - diuresed held in setting of ALLI. * HLD - statin * CAD - endorse previous angiogram with significant CAD not possible for PCI. Continue on medical management. * ALLI - continue monitoring. * HX lower lower extremity DVT - ultrasound negative for DVT. * Acute hypoxic respiratory failure, CHF, underlying COPD? - per primary team. Continue medical management with aspirin and statin and Plavix. Patient with previously known CAD and possible for PCI referred for CABG though refused in the past. Plan of care discussed in detail with patient continues to not want any type of surgical intervention or procedure at this time. Patient verbalizes understanding of risks and benefits as well as leading to myocardial . Adamant about not wanting any procedure/surgery. Continue medical management. 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 There is no further cardiac work-up indicated at this time. Kindly call if in need to re-consult. The treatment plan was discussed with and agreed upon by patient/family including requesting consultants and ordering of imaging/procedures. Thank you for allowing me to participate in the management of this patient. This medical document was created using an electronic medical record system with voice recognition software and computerized dictation system. Although this document has been carefully reviewed, there might still be some phonetic and typographical errors. Occasional wrong-word or ``sound-alike substitutions may have occurred due to the inherent limitations of voice recognition software. These areas are purely typographical due to imperfections of the software programs and do not reflect any compromise in the patient's medical care. Please read the chart carefully and recognize, using context, where these substitutions have occurred. Plan discussed with: Patient, Daughter, Other Date of Service: Jan 06, 2025 Billing Provider: ZE MARTINEZ Cardiology Common Codes: [id number] CARE(High ZE MARTINEZ Jan 06, 2025 17:01
--- NOTE | 2025-01-06 18:57 | DVHSR ---
APPROVED REPORT EXAM: Two-dimensional and M-mode echocardiogram with Doppler and color Doppler. Blood Pressure: 120/64 mmHg INDICATION Chest Pain RISK FACTORS Obesity: Height: 5'7", Weight: 265 DIMENSIONS LVDd3.9 (3.8-5.7cm)LA (2D)3.6 (1.9-4.0cm)Aortic Root (2.0-3.7cm) LVDs2.7 (2.5-4.0cm)LA (MM) (1.9-4.0cm)Aortic Cusp Exc18.0 (1.5-2.0cm) EF (%) 55.0 (55-70%)Rt. Atrium (1.9-4.0cm)Asc. Aorta cm IVSd1.6 (0.7-1.1cm)RV (D) (1.8-2.4cm) PWd1.3 (0.7-1.1cm) Mitral Valve MitralMitral Stenosis E wave0.64m/sMV Mean GR.mmHg A wave1.18m/sMV Peak GR.mmHg E/A ratio0.52D MVAcm2 DECEL [id number] 1/2 Timems Aortic Valve Aortic ValveAortic Stenosis V11.08m/Liza Mean GR.4mmHg V21.35m/Liza Peak GR.7mmHg LVOT Diameter2.2 (1.8-2.4cm)Doppler AVA3.04cm2 Other Information Quality : LimitedRhythm : Technically limited study due to body habitus. Conclusion Technically good study. Difficult acoustic windows. Significant concentric LVH. RV outflow tract enlargement. RV enlargement. Mild mitral annular calcification. The aortic valve appears to be within normal limits. The tricusp id appears to be structurally normal. Left ventricular function appears to be hypercontractile. EF is proximally 80%. RV function is mild ly diminished. Mild mitral regurgitation. Mild tricuspid regurgitation. Small pericardial effusion not hemodynamically significant. No intracardiac masses thrombi or vegeta tions discernible.
[2025-01-07 04:50] VITALS: BP 110/70; PULSE 91; RESP 22; TEMP 97.7; O2SAT 98
[2025-01-07 08:00] VITALS: PULSE 65
[2025-01-07 09:00] VITALS: BP 110/74; PULSE 74; RESP 18; TEMP 98.5; O2SAT 98
[2025-01-07] MEDS: FUROSEMIDE 40 MG/4 ML VIAL IV ONE (09:01)
--- NOTE | 2025-01-07 12:08 | DVHPN2 ---
Reviewed: Care Plan, H&P, Labs, Medications, Previous Orders, Radiology Changes from previous H/P or p: No Changes Objective Vitals Vital Signs Date Time Temp Pulse Resp B/P (MAP) Pulse Ox O2 Delivery O2 Flow Rate FiO2 01/07/25 09:01 110/74 01/07/25 09:00 98.5 74 18 98 98.5 01/06/25 20:00 Nasal Cannula* 6 44 Intake/Output Intake and Output 01/07/25 07:00 Intake Total 0 ml Balance 0 ml Intake Oral 0 ml # Voids 3 # Bowel Movements 1 Medications Current Medications Medications Dose Ordered Sig/Todd Route Start Time Stop Time Status Last Admin Dose Admin Metoclopramide HCl 10 mg Q4HP PRN IV 01/04/25 23:15 Docusate Sodium 100 mg BIDPRN PRN PO 01/04/25 23:15 Acetaminophen 650 mg Q6HP PRN PO 01/04/25 23:15 Morphine Sulfate 2 mg Q4HPRN PRN IV 01/04/25 23:15 01/05/25 08:04 2 MG Nitroglycerin 0.4 mg Q5MINP PRN SL 01/04/25 23:15 Morphine Sulfate 2 mg Q30M PRN IV 01/04/25 23:15 Aspirin 81 mg DAILY PO 01/05/25 10:00 01/07/25 11:08 81 MG Atorvastatin Calcium 80 mg HS PO 01/05/25 22:00 01/06/25 22:18 80 MG Furosemide 20 mg BIDD IV 01/05/25 06:00 Hold Enoxaparin Sodium 150 mg Q12HR@1100,2300 SC 01/04/25 23:25 01/07/25 11:08 150 MG Clopidogrel Bisulfate 75 mg DAILY PO 01/05/25 10:00 01/07/25 11:07 75 MG Pantoprazole Sodium 40 mg DAILY@0600 PO 01/05/25 06:00 01/07/25 06:15 40 MG Diagnostic Test (Pha) 1 strip ACHS 01/05/25 07:00 01/07/25 11:24 1 STRIP Insulin Human Regular ACHS SC 01/05/25 07:00 01/07/25 11:29 2 UNITS Dextrose 50 ml UD PRN IV 01/05/25 06:15 Laboratory Results Laboratory Tests 01/05/25 04:50 Urinalysis Test 01/05/25 10:34 Urine Color Yellow (Yellow) Urine Clarity Turbid (Clear) H Urine pH 5.5 (5.0-9.0) Urine Specific [place] 1.028 (1.001-1.035) Urine Protein Negative (Negative) Urine Ketones Negative (Negative) Urine Blood Negative /uL (Negative) Urine Nitrite Negative (Negative) Urine Bilirubin Negative (Negative) Urine Urobilinogen Normal mg/dL (Negative) Urine Leukocyte Esterase Negative /uL (Negative) Urine RBC 1 /hpf (0 - 4) Urine Microscopic WBC 2 /HPF (0-5) Urine Squamous Epithelial Cells Few /hpf (<5) Urine Bacteria Many /hpf (None Seen) H Urine Mucus Few (None Seen) Urine Glucose Normal mg/dL (Normal) Microbiology Microbiology Date/Time Source Procedure Growth Status 01/06/25 06:00 Nose MRSA Screen - Final Complete Labs and/or images reviewed: Labs reviewed by me, Image(s) reviewed by me Assessment/Plan Assessment/Plan NSTEMI - continue aspirin and Plavix and statin. EKG with ST and T-wave abnormalities. Echo 80 percent ejection fraction Acute on chronic HFpEF - diuresed held in setting of ALLI. Follow up echo. Hypercholesterolemia- statin CAD - endorse previous angiogram with significant CAD not possible for PCI. Continue on medical management. ALLI - continue monitoring. 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 Acute hypoxic respiratory failure continue oxygen by nasal cannula Acute COPD exacerbation Spent 50 minutes Advanced care planning time 20 minutes Patient is full code Patient continues to refuse any surgical cardiac intervention BHARATH Thomason at bedside patient requesting to be discharged home Plan discussed with: Patient My Orders Orders - KAVIN ADLER MD Procedure Category Date Status Time Npo Except For DC 01/06/25 In Process Medications 12:42 Date of Service: Jan 07, 2025 Billing Provider: KAVIN ADLER MD Common Visit Codes: [id number] INP/OBS CARE(HIGH) KAVIN ADLER MD Jan 07, 2025 12:08
[2025-01-07] MEDS ORDERED: HYDR-4902 PO (12:10)
--- NOTE | 2025-01-07 12:19 | DVHDS2 ---
Discharge Summary Date of Admission Jan 04, 2025 at 23:12 Date of Discharge: Jan 07, 2025 Admitting Diagnosis Chest pain Wounds: None Labs/Diagnostic Data: Laboratory Results Test 01/07/25 11:14 01/05/25 10:34 01/05/25 05:50 01/05/25 04:50 POC Glucose 137 mg/dl (70-106) Urine Color Yellow (Yellow) Urine Clarity Turbid (Clear) Urine pH 5.5 (5.0-9.0) Urine Specific [place] 1.028 (1.001-1.035) Urine Protein Negative (Negative) Urine Ketones Negative (Negative) Urine Blood Negative /uL (Negative) Urine Nitrite Negative (Negative) Urine Bilirubin Negative (Negative) Urine Urobilinogen Normal mg/dL (Negative) Urine Leukocyte Esterase Negative /uL (Negative) Urine RBC 1 /hpf (0 - 4) Urine Microscopic WBC 2 /HPF (0-5) Urine Squamous Epithelial Cells Few /hpf (<5) Urine Bacteria Many /hpf (None Seen) Urine Mucus Few (None Seen) Urine Glucose Normal mg/dL (Normal) Urine Opiates Screen Pos (NEGATIVE) Urine Fentanyl Screen Neg (NEGATIVE) Urine Barbiturates Screen Neg (NEGATIVE) Urine Phencyclidine Screen Neg (NEGATIVE) Urine Amphetamines Screen Neg (NEGATIVE) Urine Benzodiazepines Screen Neg (NEGATIVE) Urine Cocaine Screen Neg (NEGATIVE) Urine Cannabinoids Screen Neg (NEGATIVE) Influenza Type A Antigen Negative (Negative) Influenza Type B Antigen Negative (Negative) SARS-CoV-2 Antigen (Rapid) Negative (NEGATIVE) White Blood Count 9.8 10^3/uL (4.4-10.8) Red Blood Count 4.70 10^6/uL (4.0-5.20) Hemoglobin 14.1 g/dL (12.2-16.2) Hematocrit 40.9 % (36.0-46.0) Mean Corpuscular Volume 87.2 fL (80.0-100.0) Mean Corpuscular Hemoglobin 30.0 pg (28.0-32.0) Mean Corpuscular Hemoglobin Concent 34.4 g/dL (32.0-36.0) Red Cell Distribution Width 15.3 % (11.8-14.3) Platelet Count 207 10^3/uL (140-450) Mean Platelet Volume 8.6 fL (6.9-10.8) Neutrophils (%) (Auto) 58.9 % (37.0-80.0) Lymphocytes (%) (Auto) 31.0 % (10.0-50.0) Monocytes (%) (Auto) 7.3 % (0.0-12.0) Eosinophils (%) (Auto) 1.9 % (0.0-7.0) Basophils (%) (Auto) 0.9 % (0.0-2.0) Neutrophils # (Auto) 5.8 10 ^3/uL (1.6-8.6) Lymphocytes # (Auto) 3.0 10 ^3/uL (0.4-5.4) Monocytes # (Auto) 0.7 10 ^3/uL (0-1.3) Eosinophils # (Auto) 0.2 10 ^3/uL (0-0.8) Basophils # (Auto) 0.1 10 ^3/uL (0-0.2) Nucleated Red Blood Cells 0.0 % Erythrocyte Sedimentation Rate 14 mm/hr (0-20) Sodium Level 140 mmol/L (136-145) Potassium Level 3.7 mmol/L (3.5-5.1) Chloride Level 104 mmol/L (98-107) Carbon Dioxide Level 26 mmol/L (20-31) Anion Gap 10 (5-15) Blood Urea Nitrogen 12 mg/dL (9-23) Creatinine 1.22 mg/dL (0.550-1.02) Glomerular Filtration Rate Calc 50 mL/min (>90) BUN/Creatinine Ratio 9.8 (10.0-20.0) Serum Glucose 105 mg/dL (74-106) Calcium Level 9.2 mg/dL (8.7-10.4) Troponin I High Sensitivity 163 ng/L (</=34) C-Reactive Protein High Sensitivity 0.98 mg/dL (<1.0) Test 01/04/25 20:45 Prothrombin Time 10.7 sec (9.3-11.8) Prothrombin Time INR 1.01 (0.9-1.15) Activated Partial Thromboplast Time 25.7 SEC (24.5-34.5) Hemoglobin A1c 6.0 % A1C (<5.7) Magnesium Level 2.1 mg/dL (1.6-2.6) Total Bilirubin 0.8 mg/dL (0.2-1.0) Aspartate Amino Transferase (AST) 37 U/L (13-40) Alanine Aminotransferase (ALT) 38 U/L (7-40) Alkaline Phosphatase 116 U/L (46-116) B-Type Natriuretic Peptide 421.57 pg/mL (0-100) Total Protein 7.3 g/dL (5.7-8.2) Albumin 4.0 g/dL (3.2-4.8) Triglycerides Level 145 mg/dL (< 150) Cholesterol Level 234 mg/dL (< 200) LDL Cholesterol 193 mg/dL (< 100) HDL Cholesterol 34 mg/dL (40-59) Vitamin B12 Level 501 pg/mL (211-911) Vitamin D 25-Hydroxy 17.0 ng/mL (30.0-100) Thyroid Stimulating Hormone (TSH) 1.18 uIU/mL (0.55-4.78) Other Laboratory Tests 01/05/25 04:50 Brief Hx & Hospital Course: 64-year-old female with a history of coronary artery disease status post angiogram in the past advised not a candidate for PCI she was advised CABG she refused. History of hypercholesterolemia congestive heart failure left lower extremity DVT COPD oxygen use came in complaining of chest pain troponin was negative treated with the aspirin Plavix and statin EKG showed ST and T-wave abnormalities echo 80 percent ejection fraction. Cardiology advised left heart catheterization the patient refused. Patient does not want any surgical cardiac intervention. And requesting to be discharged home. BHARATH Thomason .on present at the time of discharge plan Melba transmitted to the pharmacy. 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 Consults/Reason for consult Cardiology Dr. Valdez Operations or Procedures Echocardiogram Condition at Discharge: Fair Final Diagnosis/Problems List NSTEMI - continue aspirin and Plavix and statin. EKG with ST and T-wave abnormalities. Echo 80 percent ejection fraction Acute on chronic HFpEF - diuresed held in setting of ALLI. Follow up echo. Hypercholesterolemia- statin CAD - endorse previous angiogram with significant CAD not possible for PCI. Continue on medical management. ALLI - continue monitoring. 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 Acute hypoxic respiratory failure continue oxygen by nasal cannula Acute COPD exacerbation Spent 50 minutes Advanced care planning time 20 minutes Patient is full code Patient continues to refuse any surgical cardiac intervention Discharge Disposition: Home Discharge Instruct/Medications Diet: Cardiac 2g Na,low cholest Activity: Light activity Follow Up/Referral: Resume all previous home medications Follow up with your new primary Dr in one week Follow up with the Cardiology Dr. Valdez in two weeks Follow up with the pulmonology Dr. Celestin two weeks Medications: [place] [facility] Scheduled PRN Hydrocodone-Acetaminophen (Hydrocodone Bitartrate/AC 5-325 mg), 1 TAB PO QID PRN Discharge Statement: "Patient was advised to return to the ER or call 911 if any headaches, dizziness, shortness of breath, chest pain, abdominal pain, bleeding, fevers, or worsening of medical condition. Patient was counseled about treatment plan, medications, possible side effects, patientverbalized understanding. All questions were answered to the best of my ability. This discharge took greater then 30 minutes in planning, reviewing documentation, counseling the patient, and discussing with other team members." ASSESSMENT ASSESSMENT Hospital Course Improved marginally Assessment NSTEMI - continue aspirin and Plavix and statin. EKG with ST and T-wave abnormalities. Echo 80 percent ejection fraction Acute on chronic HFpEF - diuresed held in setting of ALLI. Follow up echo. Hypercholesterolemia- statin CAD - endorse previous angiogram with significant CAD not possible for PCI. Continue on medical management. ALLI - continue monitoring. 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 Acute hypoxic respiratory failure continue oxygen by nasal cannula Acute COPD exacerbation Spent 50 minutes Advanced care planning time 20 minutes Patient is full code Patient continues to refuse any surgical cardiac intervention Date of Service: Jan 07, 2025 Billing Provider: KAVIN ADLER MD Common Visit Codes: [id number] INP/OBS CARE(HIGH) KAVIN ADLER MD Jan 07, 2025 12:19
[2025-01-07 13:00] VITALS: BP 135/74; PULSE 67; RESP 15; TEMP 97.9; O2SAT 98
[2025-01-07 15:45] LABS: Base Excess 2.2 mmol/L (-2.0-3.0)
[2025-01-07 17:00] VITALS: BP 119/57; PULSE 63; RESP 16; TEMP 98.1; O2SAT 100
--- NOTE | 2025-01-08 14:11 | ECG ---
[facility] Test Date: 2025-01-05 Test Time: 06:00:49 Pat Name: ABHILASH MEJIA Department: Room: [address] [place] [address] 3 Gender: F Software Computer Specialist: ROSARIO : 1960 Requested By: EDITH EDDY Order Number: [id number] Reading MD: Jackson Valdez Measurements Intervals [place] Rate: 55 P: 0 [place]: 180 QRS: -86 QRSD: 104 T: 205 QT: 493 QTc: 472 Interpretive Statements Sinus rhythm Ventricular premature complex Inferior infarct, recent Probable anterolateral infarct, age indeterm Electronically Signed On 01-09-2025 14:51:36 PDT by Jackson Valdez Please click the below link to view image of tracing.
--- NOTE | 2025-01-08 14:14 | ECG ---
[facility] Test Date: 2025-01-04 Test Time: 19:38:12 Pat Name: ABHILASH MEJIA Department: ED Room: [address] [place] [address] 3 Gender: F [employer]: DOM : 1960 Requested By: LEONCIO MOLINA Order Number: [id number] Reading MD: Jackson Valdez Measurements Intervals [place] Rate: 90 P: 66 CA: 212 QRS: -89 QRSD: 98 T: 77 QT: 365 QTc: 447 Interpretive Statements Sinus rhythm Borderline prolonged CA interval RVH with secondary repolarization abnrm Inferior infarct, acute (LCx) Lateral leads are also involved Electronically Signed On 01-09-2025 14:51:28 PDT by Jackson Valdez Please click the below link to view image of tracing.
== END 2025-01-07 18:31 | disposition home or self-care (01) | DRG 280 ==
LOC: ER 19:35 → OVERFLOW 23:12 → TELE-EAST 01-05 22:58
PROVIDERS: ADMIT Family Medicine; ATTEND Family Medicine
DX: I21.4 Non-ST elevation (NSTEMI) myocardial infarction (principal); I50.33 Acute on chronic diastolic (congestive) heart failure; N17.0 Acute kidney failure with tubular necrosis; J96.01 Acute respiratory failure with hypoxia; J44.1 Chronic obstructive pulmonary disease with (acute) exacerbation; Z68.41 Body mass index [BMI] 40.0-44.9, adult; N17.9 Acute kidney failure, unspecified; Z20.822 Contact with and (suspected) exposure to COVID-19; I11.0 Hypertensive heart disease with heart failure; I25.10 Atherosclerotic heart disease of native coronary artery without angina pectoris; I25.5 Ischemic cardiomyopathy; E66.01 Morbid (severe) obesity due to excess calories; E78.00 Pure hypercholesterolemia, unspecified; R73.03 Prediabetes; Z88.1 Allergy status to other antibiotic agents; Z88.5 Allergy status to narcotic agent; Z88.0 Allergy status to penicillin; Z88.7 Allergy status to serum and vaccine; Z82.49 Family history of ischemic heart disease and other diseases of the circulatory system; Z87.891 Personal history of nicotine dependence; Z87.11 Personal history of peptic ulcer disease; Z86.718 Personal history of other venous thrombosis and embolism; Z79.82 Long term (current) use of aspirin; Z79.02 Long term (current) use of antithrombotics/antiplatelets
CPT/HCPCS: 36415; 36600; 71045; 73562; 80048; 80053; 80061; 80307; 81001; 82306; 82607; 82805; 82962; 83036; 83735; 83880; 84443; 84484; 85025; 85610; 85652; 85730; 86141; 87081; 87426; 87804; 93005; 93306; 93971; 96361; 96374; 96375; 99291; G0378; J1815; J2405